=== PATIENT | male | born 1950 | race Caucasian/White ===

== ENCOUNTER 2019-06-16 23:38 | Inpatient (IN) ==
[2019-06-17] MEDS ORDERED: LEVOFLOXACIN INJ 750 MG in PREMIX 1 EACH IV STA (00:35)
[2019-06-17] MEDS ORDERED: SODIUM CHLORIDE 0.9% 1,000 ML IV STA (00:35)
[2019-06-17] MEDS ORDERED: SODIUM CHLORIDE 0.9% 2,800 ML IV ONE (00:35)
[2019-06-17 01:36] LABS: ABG Base Excess 1.7 MMOL/L (-2.5-2.5); ABG HCO3 25.8 MMOL/L (20-26); ABG Oxygen Saturation 95.3 % (95-100); ABG PCO2 36.9 MM HG (35-48); ABG PH 7.447 (7.35-7.45); ABG PO2 74.2 MM HG (80-95); ABG TCO2 22.3 MMOL/L (23-27); Allen Test Positive
[2019-06-17 02:06] LABS: Hematocrit 35.1 VOL% (42.0-52.0); Hemoglobin 11.9 GM/DL (14.0-18.0); Immature Granulocytes % 1.3 %; Immature Granulocytes Absolute 0.03 #; Lymphocytes # 0.3 10*3/uL (1.4-4.0); Lymphocytes % 11.8 % (21.2-54.2); Mean Corpuscular HGB Conc 33.9 GM/DL (32-36); Mean Corpuscular Volume 98.9 FL (87-102); Mean Platelet Volume 10.4 FL (9.6-12.0); Monocytes % 3.4 % (1.7-12.7); NRBC # 0.05 10*3/uL; Neutrophils % 83.5 % (38.7-73.9); Platelet Count 137 T/CUMM (130-400); Red Blood Count 3.55 MC/CUMM (3.8-5.5); Red Cell Distribution Width 15.3 % (9.3-17.3); White Blood Count 2.4 T/CUMM (4-12)
[2019-06-17] MEDS ORDERED: ACETAMINOPHEN 325 MG TABLET PO PRN (02:20)
[2019-06-17] MEDS ORDERED: ONDANSETRON 4 MG/2 ML VIAL IV PRN (02:20)
[2019-06-17 02:32] LABS: Apearance,Urine CLEAR (Clear); Bilirubin,Urine Negative (Negative); Blood, Urine Negative (Negative); Glucose,Urine (UA) Negative (Negative); Ketones,Urine Negative (Negative); Mucus,Urine Occasional /LPF (Occasional); Nitrite,Urine Negative (Negative); Protein,Urine Negative; RBC,Urine 3 /HPF (0-4); Urine Color Yellow (Yellow); Urine Specific Gravity 1.018 (1.001-1.035); Urine Urobilinogen < 2.0 EU/DL (0.2-1.0); WBC,Urine 2 /HPF (0-6)
[2019-06-17 02:44] LABS: Albumin 2.5 G/DL (3.4-5.0); Bilirubin,Total 0.5 MG/DL (0.2-1.0); Calcium 7.7 MG/DL (8.5-10.1); Osmolality,Calculated 286.8 MOS/KG (273-304); Total Protein 5.3 G/DL (6.4-8.3)
[2019-06-17 02:53] LABS: Band Neutrophils 22 % (0-10); Lymphocytes 16 % (20-55); Nucleated Red Blood Cells 2 (0-5); Segmented Neutrophils 58 % (50-85); Total Cells Counted 100
[2019-06-17 02:54] LABS: Anisocytosis 1+
[2019-06-17 02:55] LABS: Platelet Estimate Adequate
[2019-06-17 03:25] LABS: Sedimentation Rate-Westergren 52 MM/HR (0-20)
[2019-06-17] MEDS: DEXAMETHASONE 4 MG TABLET PO SCH ×2 (09:37→21:11)
[2019-06-17] MEDS: RIVAROXABAN 20 MG TABLET PO SCH (09:37)
[2019-06-17] MEDS: VANCOMYCIN INJ 1,250 MG in SODIUM CHLORIDE 0.9% 250 ML IV SCH (13:10)
[2019-06-17] MEDS: DESITIN 4OZ/NYSTATIN 15 GRAM MIXTURE PASTE TOP SCH ×2 (15:39→21:11)
[2019-06-17] MEDS: levETIRAcetam 500 MG TABLET PO SCH (21:11)
[2019-06-18] MEDS: VANCOMYCIN INJ 1,250 MG in SODIUM CHLORIDE 0.9% 250 ML IV SCH ×2 (01:04→15:06)
[2019-06-18] MEDS ORDERED: LEVOFLOXACIN INJ 750 MG in PREMIX 1 EACH IV SCH (03:00)
[2019-06-18 06:04] LABS: Basophils % 0.2 % (0.0-0.8); Hematocrit 32.6 VOL% (42.0-52.0); Hemoglobin 10.8 GM/DL (14.0-18.0); Immature Granulocytes % 2.1 %; Immature Granulocytes Absolute 0.13 #; Lymphocytes # 0.4 10*3/uL (1.4-4.0); Mean Corpuscular HGB Conc 33.1 GM/DL (32-36); Mean Corpuscular Volume 101.2 FL (87-102); Monocytes % 2.5 % (1.7-12.7); NRBC # 0.02 10*3/uL; Neutrophils % 88.2 % (38.7-73.9); Platelet Count 129 T/CUMM (130-400); Red Blood Count 3.22 MC/CUMM (3.8-5.5); Red Cell Distribution Width 15.4 % (9.3-17.3); White Blood Count 6.3 T/CUMM (4-12)
[2019-06-18 06:25] LABS: Calcium 8.6 MG/DL (8.5-10.1); Osmolality,Calculated 279.4 MOS/KG (273-304)
[2019-06-18 06:48] LABS: Hypochromasia Slight; Ovalocytes Few; Tear Drop Cells Slight
[2019-06-18 06:49] LABS: Macrocytosis Slight; Platelet Estimate Adequate; Polychromasia Slight
[2019-06-18] MEDS: DEXAMETHASONE 4 MG TABLET PO SCH ×2 (08:20→21:12)
[2019-06-18] MEDS: RIVAROXABAN 20 MG TABLET PO SCH (08:21)
[2019-06-18] MEDS: DESITIN 4OZ/NYSTATIN 15 GRAM MIXTURE PASTE TOP SCH ×2 (08:21→21:11)
[2019-06-18] MEDS ORDERED: TEMAZEPAM 15 MG CAPSULE PO PRN (12:19)
[2019-06-18] MEDS ORDERED: LOPERAMIDE 2 MG CAPSULE PO PRN (12:19)
[2019-06-18] MEDS: METOPROLOL SUCCINATE XL 25 MG TABLET PO SCH (15:06)
[2019-06-18] MEDS: LEVOFLOXACIN 750 MG TABLET PO SCH (15:06)
[2019-06-18] MEDS: levETIRAcetam 500 MG TABLET PO SCH (21:12)
[2019-06-19] MEDS: VANCOMYCIN INJ 1,250 MG in SODIUM CHLORIDE 0.9% 250 ML IV SCH (04:38)
[2019-06-19 05:57] LABS: Basophils % 0.1 % (0.0-0.8); Hematocrit 30.9 VOL% (42.0-52.0); Hemoglobin 10.3 GM/DL (14.0-18.0); Immature Granulocytes % 1.2 %; Immature Granulocytes Absolute 0.09 #; Lymphocytes # 0.5 10*3/uL (1.4-4.0); Lymphocytes % 6.4 % (21.2-54.2); Mean Corpuscular HGB Conc 33.3 GM/DL (32-36); Mean Platelet Volume 10.6 FL (9.6-12.0); NRBC # 0.02 10*3/uL; Neutrophils % 88.3 % (38.7-73.9); Platelet Count 138 T/CUMM (130-400); Red Blood Count 3.09 MC/CUMM (3.8-5.5); Red Cell Distribution Width 15.3 % (9.3-17.3); White Blood Count 7.2 T/CUMM (4-12)
[2019-06-19 06:21] LABS: Alanine Aminotransferase 35 U/L (16-61); Alkaline Phosphatase 52 U/L (45-117); Aspartate Amino Transferase 13 U/L (0-37); Bilirubin,Total < 0.39 MG/DL (0.2-1.0); Blood Urea Nitrogen 18 MG/DL (7-18); Calcium 8.5 MG/DL (8.5-10.1); Estimated Glom Filtration Rate 84 ML/MIN; Glucose 119 MG/DL (74-106); Osmolality,Calculated 288.8 MOS/KG (273-304); Total Protein 5.5 G/DL (6.4-8.3)
[2019-06-19 06:41] LABS: Band Neutrophils 3 % (0-10); Hypochromasia Slight; Lymphocytes 7 % (20-55); Macrocytosis Slight; Metamyelocytes 1 %; Platelet Estimate Adequate; Segmented Neutrophils 87 % (50-85); Total Cells Counted 100
[2019-06-19 08:04] VITALS: BP 141/87
[2019-06-19] MEDS ORDERED: LOSARTAN 25 MG TABLET PO SCH (09:00)
[2019-06-19] MEDS: LEVOFLOXACIN 750 MG TABLET PO SCH (10:07)
[2019-06-19] MEDS: METOPROLOL SUCCINATE XL 25 MG TABLET PO SCH (10:07)
[2019-06-19] MEDS: DEXAMETHASONE 4 MG TABLET PO SCH (10:08)
[2019-06-19] MEDS: RIVAROXABAN 20 MG TABLET PO SCH (10:08)
[2019-06-19] MEDS: DESITIN 4OZ/NYSTATIN 15 GRAM MIXTURE PASTE TOP SCH (10:08)
== END 2019-06-19 12:50 | disposition home health service (06) | DRG 194 ==
LOC: EDUNIT# → EDBD → N.ED 23:38 → N.EDINP 06-17 02:20 → SUATTDRO 06-17 02:21 → N.ICU 06-17 02:44 → N.4E 06-18 11:56
PROVIDERS: ADMIT Internal Medicine; ATTEND Hospitalist